=== PATIENT | female | born 1955 | race Caucasian/White ===

== ENCOUNTER → 2016-05-13 | Outpatient (CLI) | payer OTHER, BC ==
[~2016-05-13] MED LIST: ALMO1TAB PO; ASCO10003 PO; ASTN; BND25 PO; BUPR75TA20 PO; CETI10TA99 PO; CHOL100010 PO; CYAN5000 SL; DICL-201 PO; ESCI10TA17 PO; FLUT0.0529 NAE; FRCT/ PO; MONT1TAB3 PO; MULT-506 PO; OMEG1CAP71 PO; TOPI100T20 PO; voltaren gel TOP
--- NOTE | 2016-05-13 09:28 | DIAGNOSTIC IMAGING REPORT ---
RIGHT FOOT 3 VIEWS HISTORY: RIGHT FOOT PAIN Right COMPARISON: None. FINDINGS: There is no fracture or dislocation. Soft tissues are unremarkable. No radiopaque foreign bodies. IMPRESSION: No fractures. Electronically signed by: Oren Portillo M.D. 05/13/2016 9:26 AM Dictated Date/Time: 05/13/2016 9:24 AM
== END | disposition home or self-care (01) ==
LOC: C.RAD1850 08:53
PROVIDERS: ATTEND Nurse Practitioner Adult Health
DX: M79.671 Pain in right foot (principal)

== ENCOUNTER → 2016-06-04 | Outpatient (CLI) | payer OTHER, BC ==
--- NOTE | 2016-06-04 09:03 | DIAGNOSTIC IMAGING REPORT ---
RIGHT ANKLE MIN 3 VIEWS ROUTINE CLINICAL HISTORY: Right ankle pain TRAUMA COMPARISON: None. DISCUSSION: No fractures or dislocations are visualized. There is no soft tissue swelling. The ankle mortise appears intact. IMPRESSION: No fractures or dislocations identified. Electronically signed by: Oli Quintero M.D. 06/04/2016 9:01 AM Dictated Date/Time: 06/04/2016 9:01 AM
== END | disposition home or self-care (01) ==
LOC: C.RAD1850 08:44
PROVIDERS: ATTEND Nurse Practitioner Adult Health
DX: M25.571 Pain in right ankle and joints of right foot (principal)

== ENCOUNTER → 2016-06-14 | Outpatient (CLI) | payer BC ==
--- NOTE | 2016-06-14 15:13 | MAMMOGRAPHY REPORT ---
BILATERAL DIGITAL SCREENING MAMMOGRAM WITH CAD: 06/14/2016 CLINICAL HISTORY: Routine screening. Patient has no complaints. TECHNIQUE: Bilateral CC, MLO and left XCCL views were obtained. Current study was also evaluated wi th a Computer Aided Detection (CAD) system. COMPARISON: Comparison is made to exams dated: 06/10/2015 mammogram, 06/04/2014 mammogram, 05/29/2013 m ammogram - [facility], 10/24/2007, 10/24/2008, and 10/29/2009 mammogram - [facility]. BREAST COMPOSITION: There are scattered areas of fibroglandular density in both breasts. FINDINGS: There are scattered stable benign-appearing microcalcifications in the breasts. No suspic ious mass, architectural distortion or cluster of microcalcifications is seen. IMPRESSION: ACR BI-RADS CATEGORY 1: NEGATIVE There is no mammographic evidence of malignancy. A 1 year screening mammogram is recommended. The p atient will receive written notification of the results. Approximately 10% of breast cancers are not detected with mammography. A negative mammographic repor t should not delay biopsy if a clinically suggestive mass is present. Carrie Fitzpatrick M.D. ay/:06/14/2016 09:10:05 School Commissioner: Radha GONZÁLES(Paolo)([place]ra)([place]), [facility] letter sent: Normal 1/2 BI-RADS Code: ACR BI-RADS Category 1: Negative
== END | disposition home or self-care (01) ==
LOC: C.MAMM 08:02
PROVIDERS: ATTEND Obstetrics & Gynecology
DX: Z12.31 Encounter for screening mammogram for malignant neoplasm of breast (principal)

== ENCOUNTER → 2016-07-13 | Outpatient (CLI) | payer BC | END | disposition home or self-care (01) | LOC: C.PAPS 12:30 | PROVIDERS: ATTEND Obstetrics & Gynecology | DX: Z01.419 Encounter for gynecological examination (general) (routine) without abnormal findings (principal); Z78.0 Asymptomatic menopausal state ==

== ENCOUNTER → 2017-06-15 | Outpatient (CLI) | payer OTHER ==
[~2017-06-15] MED LIST changes: -BND25 PO; +DIPH25CA5 PO
--- NOTE | 2017-06-15 15:14 | MAMMOGRAPHY REPORT ---
BILATERAL DIGITAL SCREENING MAMMOGRAM TOMOSYNTHESIS WITH CAD: 06/15/2017 CLINICAL HISTORY: Routine screening. Patient has no complaints. TECHNIQUE: Breast tomosynthesis in addition to standard 2D mammography was performed. Current study was also evaluated with a Computer Aided Detection (CAD) system. COMPARISON: Comparison is made to exams dated: 06/14/2016 mammogram, 06/10/2015 mammogram, 06/04/2014 m ammogram, 05/29/2013 mammogram, 05/23/2012 mammogram, and 11/03/2010 mammogram - [facility]ter. BREAST COMPOSITION: There are scattered areas of fibroglandular density in both breasts. FINDINGS: The parenchymal pattern is unchanged. No developing mass, architectural distortion or clus ter of suspicious microcalcifications is seen in either breast. IMPRESSION: ACR BI-RADS CATEGORY 2: BENIGN There is no mammographic evidence of malignancy. A 1 year screening mammogram is recommended. The pa tient will receive written notification of the results. Approximately 10% of breast cancers are not detected with mammography. A negative mammographic report should not delay biopsy if a clinically suggestive mass is present. Carrie Fitzpatrick M.D. ay/:06/15/2017 08:34:21 Electroencephalographic Technician: Felicita GONZÁLES(Paolo)([place]ra), [facility] letter sent: Normal 1/2 BI-RADS Code: ACR BI-RADS Category 2: Benign
== END | disposition home or self-care (01) ==
LOC: C.MAMM 08:04
PROVIDERS: ATTEND Obstetrics & Gynecology
DX: Z12.31 Encounter for screening mammogram for malignant neoplasm of breast (principal)

== ENCOUNTER → 2017-07-15 | Outpatient (CLI) | payer OTHER | END | disposition home or self-care (01) | LOC: C.PAPS 11:23 | PROVIDERS: ATTEND Obstetrics & Gynecology | DX: Z12.4 Encounter for screening for malignant neoplasm of cervix (principal) ==